=== PATIENT | female | born 1940 | race Caucasian/White ===

== ENCOUNTER 2021-07-25 14:45 | Observation (INO) | payer MEDICARE ==
[2021-07-25 16:06] VITALS: BMI 25.4
[2021-07-25] MEDS ORDERED: Ondansetron PF 4 MG/2 ML Vial IVP PRN (16:21)
[2021-07-25] MEDS ORDERED: Ondansetron ODT 4 MG TAB PO PRN (16:21)
[2021-07-25] MEDS ORDERED: Acetaminophen 325 MG TAB PO PRN (16:21)
[2021-07-25] MEDS ORDERED: Acetaminophen 650 MG Suppository PR PRN (16:21)
[2021-07-25] MEDS ORDERED: Zolpidem Tartrate 5 MG TAB PO PRN (16:42)
[2021-07-25] MEDS ORDERED: Digoxin 0.5 MG/2 ML AMP SLOW IVP SCH (17:00)
[2021-07-25 17:25] LABS: #Basophils 0.1 10x3/uL (0.0-0.2); #Eosinphils 0.1 10x3/uL (0.0-0.5); #Neutrophils 6.2 10x3/uL (1.5-8.4); %Basophils 0.5 % (0.0-2.0); %Eosinophils 1.1 % (0.0-6.0); %Lymphocytes 22.5 % (18.0-47.0); %Neutrophils 65.6 % (40.0-75.0); Hemoglobin 14.9 g/dL (12.0-15.5); Mean Corpuscular HGB CONC 33.5 g/dL (32.0-36.0); Mean Corpuscular Hemoglobin 33.3 pg (27.0-33.0); Mean Corpuscular Volume 99.6 fl (81.6-98.3); Mean Platelet Volume 9.6 fl (7.4-10.4); Platelet Count 221 10x3/uL (150-450); RBC Distribution Width 12.1 % (11.5-14.5); Red Blood Cell (RBC) Count 4.47 10x6/uL (3.90-5.03); White Blood Cell (WBC) Count 9.5 10x3/uL (3.5-10.5)
[2021-07-25 17:35] LABS: Anion Gap 16 mmol/L (10-20); BUN (Urea Nitrogen) 18 mg/dL (9.8-20.1); Calc. Creatinine Clearance 58 mL/min (70-130); Calcium 9.5 mg/dL (7.8-10.44); Carbon Dioxide 24 mmol/L (23-31); Chloride 105 mmol/L (98-107); Glucose 170 mg/dL (83-110); Magnesium 1.8 mg/dL (1.6-2.6); Potassium 4.1 mmol/L (3.5-5.1); Sodium 141 mmol/L (136-145)
[2021-07-25] MEDS: Apixaban 5 MG TAB PO SCH (19:53)
[2021-07-25 20:11] LABS: Troponin I 0.039 ng/mL (< 0.028)
[2021-07-26] MEDS ORDERED: Digoxin 0.5 MG/2 ML AMP SLOW IVP SCH (01:45)
[2021-07-26 03:16] LABS: Bilirubin Neg (Negative); Blood, Urine 50 (Negative); Clarity Clear (Clear); Glucose, Urine (Dipstick) Normal (Negative); Ketone, Urine 15 mg/dL (Negative); Leukocyte Negative (Negative); Nitrite Negative (Negative); Protein, Urine (Dipstick) 15 mg/dl (Neg-Trace); Specific Gravity, Urine 1.025 (1.002-1.036); Urobilinogen Normal mg/dL (Less than 2)
[2021-07-26 03:20] LABS: Urine Culture Reflex No No
[2021-07-26 03:24] LABS: Bacteria/HPF Rare-Few HPF (None Seen); RBC/HPF 0-3 HPF (0-3); Squamous Epithelial 0-3 HPF (0-3); WBC/HPF 0-3 HPF (0-3)
[2021-07-26 03:49] LABS: #Eosinphils 0.1 10x3/uL (0.0-0.5); #Monocytes 0.9 10x3/uL (0.0-1.1); #Neutrophils 4.5 10x3/uL (1.5-8.4); %Basophils 0.5 % (0.0-2.0); %Eosinophils 1.6 % (0.0-6.0); %Monocytes 11.6 % (0.0-10.0); %Neutrophils 56.2 % (40.0-75.0); Hemoglobin 13.6 g/dL (12.0-15.5); Mean Corpuscular HGB CONC 34.3 g/dL (32.0-36.0); Mean Corpuscular Hemoglobin 34.4 pg (27.0-33.0); Mean Corpuscular Volume 100.3 fl (81.6-98.3); Mean Platelet Volume 9.9 fl (7.4-10.4); Platelet Count 200 10x3/uL (150-450); RBC Distribution Width 11.9 % (11.5-14.5); Red Blood Cell (RBC) Count 3.95 10x6/uL (3.90-5.03)
[2021-07-26 04:03] LABS: Anion Gap 15 mmol/L (10-20); BUN (Urea Nitrogen) 20 mg/dL (9.8-20.1); Calc. Creatinine Clearance 64 mL/min (70-130); Calcium 9.2 mg/dL (7.8-10.44); Carbon Dioxide 25 mmol/L (23-31); Chloride 104 mmol/L (98-107); Cholesterol 194 mg/dl (< 200 Desired); Glucose 190 mg/dL (83-110); HDL Cholesterol 48 mg/dL (>60 Neg Risk); LDL Cholesterol, Calculated 81 mg/dL; Magnesium 1.8 mg/dL (1.6-2.6); Potassium 3.8 mmol/L (3.5-5.1); Sodium 140 mmol/L (136-145); Triglycerides 326 mg/dL (Less than 150)
[2021-07-26] MEDS: Apixaban 5 MG TAB PO SCH (08:11)
[2021-07-26] MEDS ORDERED: Aspirin Chewable 81 MG TAB PO SCH (09:00)
[2021-07-26] MEDS ORDERED: Digoxin 0.125 MG TAB PO SCH (09:00)
[2021-07-26 11:54] VITALS: BP 119/59; TEMP 98
[2021-07-26 19:21] LABS: SARS-CoV-2 PCR by NAA Not Detected (NotDetected)
== END 2021-07-26 12:30 | disposition home or self-care (01) ==
LOC: INTOOBSV 14:45 → CSHTELE 14:45
PROVIDERS: ADMIT Family Medicine; ATTEND Family Medicine
DX: I48.0 Paroxysmal atrial fibrillation (principal); I48.92 Unspecified atrial flutter; I10 Essential (primary) hypertension; R73.03 Prediabetes; Z79.82 Long term (current) use of aspirin; Z79.899 Other long term (current) drug therapy; Z87.891 Personal history of nicotine dependence; Z20.822 Contact with and (suspected) exposure to COVID-19
CPT/HCPCS: 71045; 80048 ×2; 80061; 81001; 83735 ×2; 83880; 84443; 84484; 85025 ×2; 93005; 96374; 96376; G0378 ×2; G0379; U0003; U0005; 36415; 93010; J1160

== ENCOUNTER → 2021-07-25 | Emergency (ER) | payer MEDICARE, OTHER | LOC: CSHERS 15:22 | DX: I48.91 Unspecified atrial fibrillation (principal) | CPT/HCPCS: 93005; 93010 ==

== ENCOUNTER 2022-10-07 15:57 | Outpatient (CLI) | payer MEDICARE, OTHER | END 2022-10-07 15:58 | disposition home or self-care (01) | LOC: CSHMRI 15:57 | PROVIDERS: ATTEND Specialist | DX: M80.08XA Age-related osteoporosis with current pathological fracture, vertebra(e), initial encounter for fracture (principal); S22.070A Wedge compression fracture of T9-T10 vertebra, initial encounter for closed fracture; S22.071A Stable burst fracture of T9-T10 vertebra, initial encounter for closed fracture; M48.04 Spinal stenosis, thoracic region | CPT/HCPCS: 72146 ==

== ENCOUNTER 2023-03-18 13:41 | Outpatient (CLI) | payer MEDICARE, OTHER | END 2023-03-18 13:42 | disposition home or self-care (01) | LOC: CSHMRI 13:41 | PROVIDERS: ATTEND Neurological Surgery | DX: M48.54XD Collapsed vertebra, not elsewhere classified, thoracic region, subsequent encounter for fracture with routine healing (principal); M40.204 Unspecified kyphosis, thoracic region; M48.04 Spinal stenosis, thoracic region | CPT/HCPCS: 72146 ==